=== PATIENT | male | born 1980 ===

== ENCOUNTER → 2025-01-26 | Outpatient (CLI) | payer MEDICAID ==
--- NOTE | 2025-01-26 14:34 | RADIOLOGY REPORT ---
MRI LUMBAR SPINE CLINICAL HISTORY: RADICULOPATHY, LUMBAR REGION TECHNIQUE: Multi planar, multi sequence MR images of the lumbar spine without intravenous contrast. Comparison: None FINDINGS: The conus terminates at an appropriate level and demonstrates normal caliber and signal. The vertebra l bodies demonstrate normal height and marrow signal. There is straightening of the lumbar lordosis. There is multilevel disc desiccation. There is disc space narrowing at L1-L2. The paraspinal soft tis sues appear within normal limits. At L1-L2 there is disc bulge indenting the ventral thecal sac without canal or significant foraminal stenosis. At L2-L3 there is minimal disc bulge without canal or significant foraminal stenosis. At L3-L4 there is mild disc bulge without canal or significant foraminal stenosis. At L4-L5 there is mild facet arthropathy and mild disc bulge. There is no canal or significant ron inal stenosis. At L5-S1 there is disc bulge eccentric to the right and mild bilateral facet arthropathy. There is no significant canal stenosis. There is arxc-ek-epwtpolt right and mild left neural foraminal stenosis. IMPRESSION: 1. Degenerative changes in the lumbar spine as described by levels above. There is no spinal canal s tenosis. 2. Mwpt-of-hxuksjth right and mild left neural foraminal stenosis at L5-S1. HS:Y
== END | disposition home or self-care (01) ==
LOC: MRI02 13:27
PROVIDERS: ATTEND Anesthesiology
DX: M51.17 Intervertebral disc disorders with radiculopathy, lumbosacral region (principal); M47.27 Other spondylosis with radiculopathy, lumbosacral region; M48.07 Spinal stenosis, lumbosacral region
CPT/HCPCS: 72148